=== PATIENT | female | born 1965 | race American Indian/Alaskan Native ===

== ENCOUNTER 2017-03-05 11:37 | Emergency (ER) | payer OTHER, MEDICAID ==
[2017-03-05] MEDS ORDERED: PERCOCET 5/325 PO ONE (12:15)
[2017-03-05 12:51] LABS: Basophils # (Auto) 0.1 K/mm3 (0.0-0.1); Basophils % (Auto) 0.9 % (0.0-1.8); Eosinophils # (Auto) 0.4 K/mm3 (0.0-0.4); Hematocrit 38.3 % (30.3-42.9); Hemoglobin 12.5 gm/dl (10.1-14.3); Lymphocytes # (Auto) 2.9 K/mm3 (1.2-5.4); Lymphocytes % (Auto) 27.2 % (13.4-35.0); Mean Corpuscular HGB Conc 33 % (30-34); Mean Corpuscular Hemoglobin 28 pg (28-32); Mean Corpuscular Volume 86 fl (79-97); Monocytes # (Auto) 1.4 K/mm3 (0.0-0.8); Monocytes % (Auto) 12.8 % (0.0-7.3); Platelet Count 228 K/mm3 (140-440); Red Blood Count 4.44 M/mm3 (3.65-5.03); Red Cell Distribution Width 14.9 % (13.2-15.2)
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
[2017-03-05] MEDS ORDERED: MORPHINE IM ONE (13:54)
[2017-03-05 13:58] LABS: BUN/Creatinine Ratio 50; Blood Urea Nitrogen 15 mg/dL (7-17); Calcium 9.3 mg/dL (8.4-10.2); Hemolysis Index 25
--- NOTE | 2017-03-05 14:37 | Cat Scan Report ---
FINAL REPORT PROCEDURE: CT CERVICAL SPINE WO CON TECHNIQUE: Computerized tomography of the cervical spine was performed without contrast material. HISTORY: Trauma COMPARISON: None FINDINGS: Gentle dextroscoliosis is present. There is no CT evident vertebral body or posterior element fracture. There is no subluxation. There is no blastic or lytic lesion. There is no CT evident disc herniation. Degenerative moderate central canal and significant left and lesser right neural foraminal stenosis at C4/C5 is present. Lesser central canal and left neural foraminal stenosis at C3/C4 and central canal and right neural foraminal stenosis at C5/C6 and central canal stenosis and right worse than left neural foraminal stenosis at C6/C7 is present. There is no CT evident paraspinal hematoma. IMPRESSION: No evident fracture. Gentle dextroscoliosis and multilevel degenerative central canal and foraminal stenosis. If radiculopathy or myelopathy is present consider MRI for most sensitive evaluation.
--- NOTE | 2017-03-05 14:40 | Cat Scan Report ---
FINAL REPORT PROCEDURE: CT HEAD/BRAIN WO CON TECHNIQUE: Computerized tomography of the head was performed without contrast material. HISTORY: Trauma COMPARISON: None FINDINGS: The skull base and calvarium are intact. Subtle chronic right worse than left maxillary and ethmoidal sinusitis is present. There is no intra or extra-axial hemorrhage. There is no CT evident nonhemorrhagic contusion. There no infarction or hydrocephalus. There is no mass effect or shift of midline structures. IMPRESSION: No CT evident acute intracranial process. Subtle chronic sinusitis.
--- NOTE | 2017-03-05 14:50 | Cat Scan Report ---
FINAL REPORT PROCEDURE: CT LUMBAR SPINE WO CON TECHNIQUE: Axial sections and coronal and sagittal reformatted images were viewed through the lumbar spine. HISTORY: Trauma COMPARISON: None FINDINGS: There is no CT evident vertebral body or posterior element fracture. There is no subluxation. There is mild multilevel degenerative disc disease and facet DJD. Partially ossified/calcified disc protrusion at T11/T12 with extrusion and migrated disc fragment is not excluded at the superior/mid T12 level anteriorly. Smaller left posterior lateral disc protrusion/osteophyte producing focal stenosis is not excluded at T10/T11. There is no evident paraspinal soft tissue mass. IMPRESSION: No evident fracture. No subluxation. Mild multilevel degenerative disc disease and facet DJD. Disc protrusions with stenosis are not excluded at T10/T11 and T11/T12. Consider MRI for most sensitive further evaluation.
[2017-03-05 15:47] LABS: Bilirubin,Urine NEG (Negative); Blood,Urine NEG (Negative); Color,Urine Yellow (Yellow); Hyaline Casts,Urine 1 /LPF; Mucus,Urine FEW /HPF; Nitrite,Urine NEG (Negative); Protein,Urine <15 mg/dL mg/dL (Negative); Urobilinogen,Urine < 2.0 mg/dL (<2.0)
[2017-03-05 17:08] VITALS: BP 161/86
== END 2017-03-05 17:18 | disposition home or self-care (01) ==
LOC: ED 11:37
DX: M54.5 Low back pain (principal); M25.512 Pain in left shoulder; R51 Headache; Z21 Asymptomatic human immunodeficiency virus [HIV] infection status; F17.200 Nicotine dependence, unspecified, uncomplicated; Z88.0 Allergy status to penicillin; Z88.8 Allergy status to other drugs, medicaments and biological substances; Z88.6 Allergy status to analgesic agent; V49.49XA Driver injured in collision with other motor vehicles in traffic accident, initial encounter; Y93.89 Activity, other specified; Y92.89 Other specified places as the place of occurrence of the external cause; Y99.8 Other external cause status
CPT/HCPCS: 36415; 70450; 72125; 72131; 73030; 80048; 81001; 82550; 85025; 96372; 99285; J2270

== ENCOUNTER 2017-09-14 10:27 | Outpatient (CLI) | payer MEDICAID ==
--- NOTE | 2017-09-14 13:05 | Mammography Report ---
Screening mammogram: The patient had this exam on the above date . It was indicated to us that previous films should be available that would be helpful in providing optimal evaluation with regards to the current study. A final report will be issued, pending receipt of the prior study. CAD was utilized. BI-RADS CATEGORY: 0 = Needs additional imaging evaluation ACR BI-RADS MAMMOGRAPHIC CODES: 0 = Needs additional imaging evaluation; 1 = Negative; 2 = Benign; 3 = Probably benign; 4 = Suspicious; 5 = Malignant; 6 = Known biopsy-proven malignancy COMMENT: 1. Dense breast tissue, i.e., adenosis, fibrocystic changes, etc., may obscure an underlying neoplasm. 2. Approximately 10% of cancers are not detected with mammography. 3. A negative mammography report should not delay biopsy if a clinically suspicious mass is present.
== END 2017-09-14 10:28 | disposition home or self-care (01) ==
LOC: MAMMO 10:27
PROVIDERS: ATTEND Internal Medicine
DX: Z12.31 Encounter for screening mammogram for malignant neoplasm of breast (principal); I10 Essential (primary) hypertension; F17.210 Nicotine dependence, cigarettes, uncomplicated
CPT/HCPCS: 77067

== ENCOUNTER 2018-10-10 16:54 | Emergency (ER) | payer MEDICAID ==
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
[2018-10-10] MEDS ORDERED: NACL 0.9% 1000 ML 1,000 ML IV ONE (18:11)
[2018-10-10] MEDS ORDERED: PEPCID IV ONE (18:11)
[2018-10-10] MEDS ORDERED: MORPHINE IV ONE (18:11)
[2018-10-10] MEDS ORDERED: ZOFRAN IV ONE (18:11)
[2018-10-10] MEDS ORDERED: DILAUDID IV ONE ×2 (18:17→19:32)
[2018-10-10 19:11] LABS: Basophils # (Auto) 0.1 K/mm3 (0.0-0.1); Basophils % (Auto) 0.7 % (0.0-1.8); Eosinophils # (Auto) 0.2 K/mm3 (0.0-0.4); Hematocrit 43.2 % (30.3-42.9); Hemoglobin 14.1 gm/dl (10.1-14.3); Lymphocytes # (Auto) 2.8 K/mm3 (1.2-5.4); Lymphocytes % (Auto) 24.3 % (13.4-35.0); Mean Corpuscular HGB Conc 33 % (30-34); Mean Corpuscular Volume 84 fl (79-97); Monocytes # (Auto) 1.7 K/mm3 (0.0-0.8); Monocytes % (Auto) 15.1 % (0.0-7.3); Platelet Count 258 K/mm3 (140-440); Red Blood Count 5.12 M/mm3 (3.65-5.03)
[2018-10-10] MEDS ORDERED: MAGNESIUM SULFATE 2GM/50ML 2 GM/50 ML BAG IV ONE (19:32)
--- NOTE | 2018-10-10 19:33 | XRay Report ---
CHEST 1 VIEW INDICATION / CLINICAL INFORMATION: dyspnea. COMPARISON: None available. FINDINGS: SUPPORT DEVICES: None. HEART / MEDIASTINUM: No significant abnormality. LUNGS / PLEURA: Increased density is seen in the right lower hemithorax with associated tenting of th e right hemidiaphragm. There is mild focal atelectasis in the left lower lung. No pneumothorax. ADDITIONAL FINDINGS: No significant additional findings. IMPRESSION: 1. Pleural-parenchymal opacity in the right lower hemithorax may represent scarring, there are no com parison studies. Signer Name: Channing Pimentel MD Signed: 10/10/2018 7:28 PM Workstation Name: [id number]
[2018-10-10 19:43] LABS: Albumin 3.9 g/dL (3.9-5); BUN/Creatinine Ratio 27; Blood Urea Nitrogen 8 mg/dL (7-17); Calcium 9.2 mg/dL (8.4-10.2); Hemolysis Index 159
[2018-10-10 19:44] LABS: Bilirubin,Urine NEG (Negative); Blood,Urine NEG (Negative); Color,Urine Yellow (Yellow); Mucus,Urine FEW /HPF; Protein,Urine <15 mg/dL mg/dL (Negative); Urobilinogen,Urine < 2.0 mg/dL (<2.0); WBC,Urine < 1.0 /HPF (0.0-6.0)
[2018-10-10 19:46] LABS: Alanine Aminotransferase 13 units/L (7-56)
[2018-10-10] MEDS ORDERED: REGLAN ONE (20:40)
[2018-10-10 20:49] LABS: INR 1.03 (0.87-1.13)
[2018-10-10] MEDS ORDERED: REGLAN IV ONE (20:54)
--- NOTE | 2018-10-10 22:29 | Cat Scan Report ---
CT abdomen pelvis w con INDICATION: abd pain n/v. TECHNIQUE: All CT scans at this location are performed using CT dose reduction for ALARA by means of automated e xposure control. COMPARISON: None available. FINDINGS: Lung bases appear clear. Liver, gallbladder, pancreas, kidneys and adrenals appear negative. Spleen i s absent. Abdominal aorta is atherosclerotic but normal in size. No adenopathy. Pelvis Wall thickening is demonstrated in the sigmoid and rectum, consistent with inflammatory change. Urina ry bladder is negative. No free fluid. Diffuse osteopenia but no acute skeletal lesions. IMPRESSION: 1. Inflammatory change involving the rectum and sigmoid. Etiology is uncertain. Signer Name: Chip Alegria MD Signed: 10/10/2018 10:24 PM Workstation Name: [id number]
[2018-10-10] MEDS ORDERED: FLAGYL PO ONE (22:34)
[2018-10-10] MEDS ORDERED: LEVAQUIN PO ONE (22:34)
--- NOTE | 2018-10-10 23:45 | Nuclear Medicine Report ---
Ventilation/perfusion scan of the lungs INDICATION: Shortness of breath TECHNIQUE: The patient was administered 15 mCi of xenon-133 for the ventilation portion of study and 5 mCi of technetium 99 MAA for the perfusion phase FINDINGS: Ventilation phase shows minimal air trapping. The perfusion phase shows no focal segmental perfusion defects. May be a small subsegmental perfusion defect in the superior segment of the right lower lobe. Probability of embolus is considered low. Signer Name: Ananda Nunes MD Signed: 10/10/2018 11:41 PM Workstation Name: [id number]
[2018-10-11 00:11] VITALS: BP 164/96
== END 2018-10-11 00:40 | disposition home or self-care (01) ==
LOC: ED 16:54
DX: E83.42 Hypomagnesemia (principal); F11.20 Opioid dependence, uncomplicated; R10.11 Right upper quadrant pain; R06.02 Shortness of breath; R11.2 Nausea with vomiting, unspecified; G89.29 Other chronic pain; I10 Essential (primary) hypertension; F17.200 Nicotine dependence, unspecified, uncomplicated; Z90.89 Acquired absence of other organs; Z79.899 Other long term (current) drug therapy; Z88.6 Allergy status to analgesic agent; Z88.1 Allergy status to other antibiotic agents; Z88.0 Allergy status to penicillin
CPT/HCPCS: 36415; 71045; 74177; 78582; 80053; 81001; 82140; 82550; 83690; 83735; 84484; 85025; 85379; 85610; 87086; 93005; 93010; 96361; 96365; 96375; 96376; 99285; A9540; A9558; J1170; J2270; J2405; J2765; J3475; J7030; Q9967

== ENCOUNTER 2021-05-29 13:22 | Outpatient (CLI) | payer MEDICAID ==
--- NOTE | 2021-05-30 13:36 | Mammography Report ---
DIGITAL SCREENING MAMMOGRAM WITH CAD, 05/29/2021 CLINICAL INFORMATION / INDICATION: Routine screening mammography. SCREENING MAMMOGRAM TECHNIQUE: Digital bilateral 2D mammography was obtained in the craniocaudal and mediolateral obliqu e projections. This examination was interpreted with the benefit of Computer-Aided Detection analysis . COMPARISON: 09/14/17 FINDINGS: Breast Density: The breasts are heterogeneously dense, which may obscure small masses. No dominant mass, suspicious calcifications, or architectural distortion in either breast. IMPRESSION: No mammographic evidence of malignancy. No significant change. Follow up recommendation: Routine yearly BI-RADS Category 1: NEGATIVE A "normal" or negative report should not discourage follow up or biopsy of a clinically significant f inding. A written summary of these findings will be mailed to the patient. The patient will be entered into a mammography reporting system which will generate a reminder letter for the patient's next appointmen t at the appropriate interval. The [employer] recommends yearly mammograms starting at age 40 and continuing as l geoff as a woman is in good health. Breast MRI is recommended for women with an approximate 20-25% or greater lifetime risk of breast cancer, including women with a strong family history of breast or ova viviane cancer or who have been treated for Hodgkin's disease. Signer Name: Victorina Ramsey MD Signed: 05/30/2021 1:31 PM Workstation Name: [id number]
== END 2021-05-29 13:23 | disposition home or self-care (01) ==
LOC: MAMMO 13:22
PROVIDERS: ATTEND Internal Medicine
DX: Z12.31 Encounter for screening mammogram for malignant neoplasm of breast (principal)
CPT/HCPCS: 77067